=== PATIENT | male | born 1985 | race Caucasian/White ===

== ENCOUNTER 2016-09-01 04:58 | Emergency (ER) | payer OTHER ==
[~2016-09-01] VITALS: Ht 177.8 cm; Wt 64.5 kg
[2016-09-01 05:04] VITALS: Ht 177.8 cm; Wt 64.5 kg
[2016-09-01] MEDS ORDERED: NAPR220C2 PO (05:42)
[2016-09-01] MEDS ORDERED: morphine 4 MG/ML VIAL IV STA (06:09)
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
[2016-09-01] MEDS ORDERED: CLINDAMYCIN 600 MG/D5W (PMX) 50 ML IVPB SCH (06:30)
[2016-09-01 06:32] LABS: ADD SCAN DIFF NO
[2016-09-01 06:34] LABS: BASOPHILS % 0.3 % (0.0-2.0); EOSINOPHILS # 0.2 10^3/ul (0.0-0.5); EOSINOPHILS % 2.3 % (0.0-7.0); HEMOGLOBIN 15.3 g/dl (14.0-18.0); LYMPHOCYTES # 1.6 10^3/ul (0.8-2.9); LYMPHOCYTES % 20.9 % (15.0-51.0); MEAN CORPUSCULAR HEMOGLOBIN 29.8 pg (29.0-33.0); MEAN CORPUSCULAR HGB CONC 34.8 g/dl (32.0-37.0); MEAN CORPUSCULAR VOLUME 85.8 fl (82.0-101.0); MEAN PLATELET VOLUME 10.6 fl (7.4-10.4); MONOCYTE # 0.6 10^3/ul (0.3-0.9); NEUTROPHIL # 5.4 10^3/ul (1.6-7.5); NEUTROPHILS % 68.4 % (39.0-77.0); PLATELET COUNT 307 10^3/UL (140-415); RED BLOOD COUNT 5.13 10^6/ul (4.70-6.10); RED CELL DISTRIBUTION WIDTH 13.9 % (11.5-14.5); WHITE BLOOD COUNT 7.9 10^3/ul (4.8-10.8)
[2016-09-01 07:00] LABS: CALCIUM 9.7 mg/dl (8.4-10.2); CREATININE 0.79 mg/dl (0.61-1.24); POTASSIUM 4.4 mmol/L (3.5-5.1)
[2016-09-01] MEDS ORDERED: ACETAMINOPHEN 325 MG TAB PO PRN ×2 (08:00→10:30)
[2016-09-01] MEDS ORDERED: ONDANSETRON 4 MG INJ IV PRN ×2 (08:00→10:30)
[2016-09-01 08:20] VITALS: BP 148/106; PULSE 82; RESP 14; TEMP 98.8
--- NOTE | 2016-09-01 08:44 | RADRPT ---
PROCEDURE: XR Left Tibia-Fibula CLINICAL INDICATION: Wound, evaluate for osseous abnormality TECHNIQUE: AP and lateral radiographs were submitted COMPARISON: None FINDINGS: Osseous structures: A corticated ossification is seen inferior to the lateral malleolus which likely represents an accessory ossicle. The osseous elements otherwise appear intact. Joint spaces: are well maintained, with no significant spurring, erosion or joint effusion evident. Soft tissues: There is a soft tissue defect with subcutaneous air seen within the soft tissues media l to the mid lower leg. IMPRESSION: 1. Soft tissue defect with subcutaneous air seen medial to the mid tibia. 2. Accessory ossicles seen distal to the lateral malleolus. The osseous elements otherwise appear intact. Physician Jerad Date Time Electronically viewed and signed by Physician Jerad on 09/01/2016 08:44 /
[2016-09-01] MEDS ORDERED: BISACODYL 10 MG SUPP PR PRN (10:30)
[2016-09-01] MEDS ORDERED: ACETAMINOPHEN 650 MG SUPP PR PRN (10:30)
[2016-09-01] MEDS ORDERED: morphine 2 MG INJ IV PRN (10:30)
[2016-09-01] MEDS ORDERED: MAGNESIUM HYDROXIDE 30ML CUP PO PRN (10:30)
[2016-09-01] MEDS ORDERED: DOCUSATE SODIUM 100 MG CAP PO PRN (10:30)
[2016-09-01] MEDS ORDERED: NACL 0.9% 3 ML SYG IV SCH (10:30)
[2016-09-01] MEDS ORDERED: HYDROCODONE/APAP (5/325) TAB PO PRN ×2 (10:30)
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
[2016-09-01] MEDS ORDERED: VANCOMYCIN IV PER PHARMACY XX SCH (11:00)
[2016-09-01] MEDS ORDERED: VANCOMYCIN 1.25 GM in SOD CHLORIDE 0.9% 250 ML IVPB SCH (12:00)
[2016-09-01] MEDS ORDERED: CLIN-73 PO (12:02)
[2016-09-01] MEDS ORDERED: NEOM28.43 TOP (12:12)
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
== END 2016-09-01 15:29 | disposition home or self-care (01) ==
LOC: E/R 04:58
DX: S81.802A Unspecified open wound, left lower leg, initial encounter (principal); L08.9 Local infection of the skin and subcutaneous tissue, unspecified; V89.2XXA Person injured in unspecified motor-vehicle accident, traffic, initial encounter
CPT/HCPCS: 36415; 73590; 80048; 85025; 87070; 96365; 96375; J2270; J3370; J7050; Z7502; Z7610

== ENCOUNTER 2017-05-07 12:44 | Emergency (ER) | END 2017-05-07 19:32 | disposition home or self-care (01) ==